=== PATIENT | female | born 1990 | race Caucasian/White ===

== ENCOUNTER 2018-04-06 07:19 | Inpatient (IN) | payer OTHER ==
[2018-04-06 07:46] VITALS: BMI 31.7
[2018-04-06 08:10] LABS: Amnisure Test RUPTURE DETECTED (No Rupture)
[2018-04-06 08:11] LABS: Amnisure Internal Control QC ACCEPTABLE (ACCEPTABLE)
[2018-04-06] MEDS ORDERED: Penicillin G Potassium 5 MILL.UNITS VIAL ONE (08:24)
[2018-04-06] MEDS ORDERED: Sodium Chloride 0.9% 100 ML ONE (08:24)
[2018-04-06] MEDS ORDERED: Lidocaine 1% (PF) 30 ML VIAL ONE ×2 (08:24→23:27)
[2018-04-06] MEDS ORDERED: Lidocaine 1% (PF) 30 ML VIAL SC PRN (08:49)
[2018-04-06] MEDS ORDERED: Meperidine HCl/PF 25 MG/ML VIAL IM/IV PRN (08:49)
[2018-04-06] MEDS ORDERED: Butorphanol Tartrate 1 MG/ML VIAL SLOW IVP PRN (08:49)
[2018-04-06] MEDS ORDERED: HYDROcodone/Acetaminophen 5/325 mg Tablet PO PRN ×2 (08:49)
[2018-04-06] MEDS ORDERED: Ondansetron PF 4 MG/2 ML Vial IVP PRN ×2 (08:49→19:10)
[2018-04-06] MEDS ORDERED: Ibuprofen 800 MG TAB PO PRN (08:49)
[2018-04-06] MEDS ORDERED: NS / Oxytocin 40 units/1000ml 1,000 ML IV PRN (08:49)
[2018-04-06] MEDS ORDERED: Promethazine HCl 25 MG/ML VIAL IM PRN ×2 (08:49→19:10)
--- NOTE | 2018-04-06 08:58 | PDOC.LDHP ---
Labor and Delivery H&P Chief complaint: loss of fluid HPI: Pt is a 27yo @ 38+ here with PROM @ 6am. No contractions noted, good FM. Current gestational age (weeks): 38 Due date: 04/14/18 Grav: 3 Para: 0 OB History Details: SAB x 2 Current complications: none Abnormal US findings: No Current medications: pre- vitamins Previous surgical history: none Allergies/Adverse Reactions: Allergies Allergy/AdvReac Type Severity Reaction Status Date / Time No Known Allergies Allergy Verified 04/06/18 08:03 Social history: none - Physical Exam Vital signs reviewed and normal: yes General: NAD, resting Heart: RRR Lungs: CTAB Abdomen: gravid Extremeties: no edema FHT: category 1 - Vaginal Exam cm dilated: 1 Effacement: 0% Station: -3 - OB Labs Blood type: O RH: positive Antibody Screen: negative HIV: negative RPR: negative HEPSAg: negative 1 hour GCT: negative (119) GBS: positive Rubella: immune Additional Labs: NIPT low risk - Assessment L&D Assessment: term rupture in membranes - Plan Plan: admit to L&D, cervical ripening, labor augmentation if indicated, GBS antibiotic prophylaxis, informed consent obtained, anesthesia consult for pain management -: A/P: @ 38.6 w PROM at term. Admit, cervical ripening with cytotec reviewed, PCN for GBS prophylaxis.
[2018-04-06] MEDS ORDERED: NS w/ Oxytocin 10 units 500 ML IV SCH ×2 (09:00)
[2018-04-06] MEDS ORDERED: Penicillin G Potassium 5 MILL.UNITS in Sodium Chloride 0.9% 100 ML IVPB SCH (09:00)
[2018-04-06] MEDS: Lactated Ringer's 1,000 ML IV SCH ×3 (09:00→21:42)
[2018-04-06] MEDS: Misoprostol 100 MCG TAB PO SCH ×2 (09:28→13:54)
[2018-04-06 09:41] LABS: Hemoglobin 11.9 g/dL (12.0-16.0); Mean Corpuscular HGB CONC 33.5 g/dL (32.0-36.0); Mean Corpuscular Hemoglobin 27.8 pg (27.0-31.0); Mean Platelet Volume 8.7 fL (7.4-10.4); Platelet Count 272 thou/uL (130-400); RBC Distribution Width 13.4 % (11.5-14.5); White Blood Cell (WBC) Count 10.9 thou/uL (4.8-10.8)
[2018-04-06 10:19] LABS: HBSAg Index 0.17 S/CO (0-0.99); Hep B Surf Ag Non-Reactive S/CO (NonReactive)
[2018-04-06] MEDS ORDERED: Bupivacaine 0.25% 10 ML VIAL ONE (11:11)
[2018-04-06] MEDS ORDERED: Bupivacaine PF 0.5% 30 ML VIAL ONE (11:11)
[2018-04-06] MEDS ORDERED: Sodium Chloride 0.9% (PF) 10 ML VIAL ONE (11:11)
[2018-04-06] MEDS: Penicillin G 2.5 MILL.units 2.5 MILL.UNITS in Premix Bag 1 BAG IVPB SCH ×3 (13:01→21:41)
[2018-04-06] MEDS ORDERED: Fentanyl 4 mcg/Bup 0.1% Cadd 100 ML ONE (18:01)
[2018-04-06] MEDS ORDERED: Lidocaine 1.5% w/Epi 1:200K 30 ML VIAL (Epid Use) ONE (18:36)
[2018-04-06] MEDS ORDERED: ePHEDrine/0.9% NaCl/PF SYRINGE 50 mg/10 ml SLOW IVP PRN (19:10)
[2018-04-06] MEDS ORDERED: Lactated Ringer's 500 ML IV PRN (19:10)
[2018-04-06] MEDS ORDERED: Naloxone HCl 0.4 mg/ml Vial IVP PRN ×2 (19:10)
[2018-04-06] MEDS ORDERED: Acetaminophen 325 MG TAB PO PRN (19:10)
[2018-04-06] MEDS ORDERED: diphenhydrAMINE 50 MG/ML VIAL IVP PRN (19:10)
[2018-04-06] MEDS ORDERED: Eucerin (Mineral Oil/Petrolatum,White) 30 gm Jar TOP PRN (19:10)
[2018-04-06] MEDS ORDERED: Communication Order-Pharmacy FS SCH (19:15)
[2018-04-06] MEDS ORDERED: Lidocaine 1% w/Epinephrine 1:100K 20 ML VIAL NERVE BLCK SCH (19:15)
[2018-04-06] MEDS ORDERED: Fentanyl 4 mcg/Bupivacaine 0.1% Cassette 100 ML EPIDURAL SCH (19:15)
[2018-04-06] MEDS ORDERED: NS / Oxytocin 40 units/1000ml 1,000 ML ONE (23:27)
--- NOTE | 2018-04-07 05:04 | DN ---
DATE OF PROCEDURE: 04/07/2018 The patient delivered a female on 04/07/2018 at 0208 hours by an uncomplicated term and spontaneous vaginal delivery at 38 weeks and 6 days gestation. Apgars were 6 and 9. Weight was 2990 g. The placenta delivered spontaneously followed by Pitocin infusion. There were no lacerations. Quantitative blood loss is 8. Estimated blood loss is 200. The delivering physician is Dr. Echols. There were no lacerations. Mother and baby are stable in the room in the immediate . Count was correct. Job ID: [id number]
[2018-04-07] MEDS ORDERED: diphenhydrAMINE 25 MG CAP PO PRN (06:40)
[2018-04-07] MEDS ORDERED: NS / Oxytocin 40 units/1000ml 1,000 ML IV SCH (06:40)
[2018-04-07] MEDS ORDERED: Adacel (T-DAP) 0.5 ML SYRINGE IM ONE (06:40)
[2018-04-07] MEDS ORDERED: Milk Of Magnesia 30 ML UDCUP PO PRN (06:40)
[2018-04-07] MEDS ORDERED: Bisacodyl 10 MG SUPP PR PRN (06:40)
[2018-04-07] MEDS ORDERED: Benzocaine/Menthol 20-0.5% 60 ML CAN TOP PRN (06:40)
--- NOTE | 2018-04-07 12:11 | PDOC.PP ---
Post Progress Note Post Day #: 0 Subjective: having problems with latch, min discomfort PO intake tolerated: yes Flatus: yes Ambulation: yes Vital Signs (12 hours) Pulse Ox 04/07/18 08:00 98 Weight Weight 185 lb - Physical Examination General: NAD Respiratory: non-labored breathing Abdominal: no distention Fundus firm & at: at umb Neurological: no gross focal deficits Psychiatric: A&Ox3, normal affect Result Diagrams: 04/06/18 09:31 Additional Labs: Post Labs Blood Type O POSITIVE 04/06/18 09:31 Hep Bs Antigen Non-Reactive S/CO (NonReactive) 04/06/18 09:32 (1) 39 weeks gestation of Code(s): Z3A.39 - 39 WEEKS GESTATION OF Status: Acute (2) Vaginal delivery Code(s): O80 - ENCOUNTER FOR FULL-TERM UNCOMPLICATED DELIVERY Status: Acute - Assessment/Plan PPD0, doing well, LC pending, advance orders.
[2018-04-07] MEDS: Ibuprofen 800 MG TAB PO SCH ×3 (14:42→20:53)
[2018-04-07] MEDS: Docusate Calcium (SURFAK) 240 MG CAP PO SCH ×2 (18:32→20:53)
[2018-04-07] MEDS: Ferrous Sulfate 325 MG TAB PO SCH (18:32)
[2018-04-07] MEDS: Misoprostol 100 MCG TAB PO SCH ×2 (18:35→18:36)
[2018-04-07] MEDS: Penicillin G 2.5 MILL.units 2.5 MILL.UNITS in Premix Bag 1 BAG IVPB SCH (18:36)
[2018-04-08 05:50] LABS: Hemoglobin 10.9 g/dL (12.0-16.0); Mean Corpuscular Volume 84.9 fL (78.0-98.0); Mean Platelet Volume 8.9 fL (7.4-10.4); Platelet Count 252 thou/uL (130-400); RBC Distribution Width 13.5 % (11.5-14.5); Red Blood Cell (RBC) Count 3.89 mill/uL (4.20-5.40); White Blood Cell (WBC) Count 11.5 thou/uL (4.8-10.8)
[2018-04-08] MEDS: Ibuprofen 800 MG TAB PO SCH ×3 (06:05→21:26)
--- NOTE | 2018-04-08 06:17 | PDOC.PP ---
Post Progress Note Post Day #: 1 Subjective: Doing well, desires to stay until PPD2: attempting to BF PO intake tolerated: yes Flatus: yes Ambulation: yes Vital Signs (12 hours) Temp Pulse Resp BP Pulse Ox 04/07/18 20:18 97.7 F 105 H 16 116/67 97 04/07/18 20:00 97 04/07/18 18:47 97.9 F 99 18 135/72 Weight Weight 185 lb - Physical Examination General: NAD Cardiovascular: no m/r/g Respiratory: clear to auscultation bilaterally Abdominal: + bowel sounds, lochia, no distention, appropriately TTP Extremities: negative homans (B) Neurological: no gross focal deficits Psychiatric: A&Ox3, normal affect Result Diagrams: 04/08/18 05:01 Additional Labs: Post Labs Blood Type O POSITIVE 04/06/18 09:31 Hep Bs Antigen Non-Reactive S/CO (NonReactive) 04/06/18 09:32 (1) 39 weeks gestation of Code(s): Z3A.39 - 39 WEEKS GESTATION OF Status: Acute (2) Vaginal delivery Code(s): O80 - ENCOUNTER FOR FULL-TERM UNCOMPLICATED DELIVERY Status: Acute - Assessment/Plan PPD1 doing well;dessires in-house stay until PPD2 due to asistenece here Plan: routine PP care follow BPs per routine likely [facility] to home tomorrow
[2018-04-08] MEDS: Ferrous Sulfate 325 MG TAB PO SCH ×2 (09:48→18:35)
[2018-04-08] MEDS: Docusate Calcium (SURFAK) 240 MG CAP PO SCH ×2 (09:49→21:26)
[2018-04-08] MEDS ORDERED: Lanolin Ointment 7 GM TUBE TOP PRN (21:05)
[2018-04-09] MEDS: Ibuprofen 800 MG TAB PO SCH (06:08)
--- NOTE | 2018-04-09 08:45 | DIS ---
DATE OF ADMISSION: 04/06/2018 DATE OF DISCHARGE: 04/09/2018 ADMITTING DIAGNOSIS: Intrauterine at 36 weeks with premature rupture of membranes. DISCHARGE DIAGNOSIS: Intrauterine at 36 weeks with premature rupture of membranes. PROCEDURE: Term spontaneous vaginal delivery. HOSPITAL COURSE: The patient is a 27-year-old female, who was admitted on 04/06/2018 with concerns for rupture of membranes. Induction of labor was started that resulted in a term spontaneous vaginal delivery. Her course has been uncomplicated. Today, she reports she is tolerating p.o., voiding on her own, having decreased lochia and good pain control. PHYSICAL EXAMINATION: VITAL SIGNS: Most recent blood pressure 121/68, temperature 97.7, pulse of 95, and respiratory rate of 18. GENERAL: She appears to be in no acute distress. She is alert, oriented, cooperative, and pleasant to interact with. HEENT: Head is normocephalic and atraumatic. ABDOMEN: Fundus is firm. EXTREMITIES: Nontender and nonedematous. The patient will be discharged to home with instructions to follow up with Dr. Grande in 6 weeks or sooner if she experiences fever, increasing pain, or bleeding. Job ID: [id number]
[2018-04-09 08:51] VITALS: BP 118/68; TEMP 97.9
[2018-04-09] MEDS: Ferrous Sulfate 325 MG TAB PO SCH (09:19)
[2018-04-09] MEDS: Docusate Calcium (SURFAK) 240 MG CAP PO SCH (09:19)
== END 2018-04-09 12:25 | disposition home or self-care (01) | DRG 807 ==
LOC: L&D/OP 07:19 → L&D 08:44 → 3SW 04-07 17:30
PROVIDERS: ADMIT Obstetrics & Gynecology; ATTEND Obstetrics & Gynecology
PROC: 10E0XZZ Delivery of Products of Conception, External Approach (ICD-10-PCS; principal; 2018-04-07)
PROC: 3E0P7VZ Introduction of Hormone into Female Reproductive, Via Natural or Artificial Opening (ICD-10-PCS; 2018-04-07)
DX: O42.02 Full-term premature rupture of membranes, onset of labor within 24 hours of rupture (principal); Z37.0 Single live birth; O99.824 Streptococcus B carrier state complicating childbirth; O69.81X0 Labor and delivery complicated by cord around neck, without compression, not applicable or unspecified; Z3A.38 38 weeks gestation of pregnancy
CPT/HCPCS: 36415; 51702; 84112; 85027; 86850; 86900; 86901; 87340; 90715; 99285; J0595; J2001; J2540; J7050; S0020